=== PATIENT | female | born 1985 | race Caucasian/White ===

== ENCOUNTER → 2021-06-11 09:44 | Outpatient (CLI) | payer OTHER, SELFPAY ==
[2021-06-11 19:19] LABS: SARS-CoV-2 RNA PCR Negative
== END ==
PROVIDERS: Visit Provider Obstetrics & Gynecology Gynecologic Oncology
DX: Z01.812 Encounter for preprocedural laboratory examination (principal); Z20.822 Contact with and (suspected) exposure to COVID-19
CPT/HCPCS: C9803; U0003; U0005

== ENCOUNTER 2021-06-11 09:45 | Outpatient (CLI) | payer OTHER, SELFPAY ==
[2021-06-11 10:07] LABS: Hematocrit 37.6 % (37.0-47.0); Mean Corpuscular HGB Conc 31.9 g/dl (32-36); Mean Corpuscular Volume 84.5 fl (80-100); Mean Platelet Volume 9.4 fl (7.4-10.4); Platelet Count Result 283 k/mm3 (150-375); Red Blood Count 4.45 M/mm3 (4.2-5.4); Red Cell Distribution Width 15.6 % (11.5-14.5)
--- NOTE | 2021-06-11 10:15 | ECG_ITS ---
Measurements Intervals [place] Rate: 65 P: 37 WI: 148 QRS: 19 QRSD: 91 T: 41 QT: 430 QTc: 449 Interpretive Statements SINUS RHYTHM INCOMPLETE RIGHT BUNDLE BRANCH BLOCK BORDERLINE T WAVE ABNORMALITY- ANTERIOR LEADS BORDERLINE ECG Electronically Signed On 06-11-2021 16:48:12 PETROLEUM SAMPLER by Nic Britton D.O.
[2021-06-11 10:19] LABS: Anion Gap 8 mmol/L (8-16); Blood Urea Nitrogen 16 mg/dL (7-17); Calcium 9.3 mg/dL (8.4-10.2); Carbon Dioxide 27 mmol/L (22-30); Chloride 104 mmol/L (98-107); Estimated Glomerular Filt Rate > 60; Glucose 98 mg/dL (65-110); Potassium 4.2 mmol/L (3.4-5.0); Sodium 139 mmol/L (137-145)
== END 2021-06-11 09:46 | disposition home or self-care (01) ==
PROVIDERS: Referring Provider Anesthesiology; Visit Provider Obstetrics & Gynecology Gynecologic Oncology
DX: Z30.2 Encounter for sterilization (principal); E88.81 Metabolic syndrome and other insulin resistance; I10 Essential (primary) hypertension
CPT/HCPCS: 36415; 80048; 85027; 86850; 86900; 86901; 93005

== ENCOUNTER 2021-06-15 01:23 | Day surgery (SDC) | payer OTHER, SELFPAY ==
[2021-06-10 09:32] VITALS: BMI 27.6
--- NOTE | 2021-06-10 09:47 | PC.NURSE ---
Report to the Outpatient Waiting Room, entrance under the green pavilion located off [facility], at time 11:30 on date 06/15/21. OR Time: 1:30. - You and your visitor will be asked a series of questions to screen for COVID 19 for your protection. - A mask is required within the hospital. - Only one visitor is allowed at this time. Patient visitors will be guided where to wait when not with patient. Preoperative COVID Testing Requirements: No COVID Test needed if: (proof is required; if not received patient will have Rapid Test prior to entry) - Patient has received COVID Vaccine at least 14 days prior to procedure date or - Patient has positive COVID test result within last 90 days of surgery date. COVID Test needed if above criteria is not met If not COVID vaccinated a COVID test must be conducted within 72 hours of surgery and patient is asked to isolate self from time of testing until procedure. You will go to the [facility] for your COVID testing. The [facility] site is located at the corner of [address] [facility]. COVID TEST 06/11 AT 9:25 You will only be called if COVID results are positive and your surgeon may reschedule your elective surgery date. Patients may have clear liquids (water, carbonated beverages, clear teas, apple juice) until 3 hours prior to surgery (10:30) with a maximum of 20 ounces. - No food from midnight until time of surgery - Infants may have breast milk until 4 hours before surgery, formula 6 hours prior to surgery. - Children will be allowed to drink immediately following surgery. If applicable, please bring a bottle or sippy cup to assist with drinking. Juice, water, soda, and popsicles are readily available. For infants on formula, please bring formula the day of surgery. Pacifiers are allowed. Take the following medications with a SIP of water the morning of surgery: WELLBUTRIN, LABETALOL, LAMICTAL, ZOLOFT Medications to discontinue per physician: VITAMINS/SUPPLEMENTS Date to take last dose: 06/11/21 Please no make-up, nail vietnamese, hairspray, perfume, deodorant, or body powder the day of surgery. No jewelry (including any body piercings) or valuables the day of surgery, leave them at home. Please take a shower or bath the night before, or the morning of, surgery with an antibacterial soap. Wear comfortable, loose fitting clothing. Children are encouraged to wear pajamas. - Jewelry must be removed prior to entering the operating room. Rings and piercings that are not removed may be cut off. - The hospital will not accept responsibility for valuables. - Please leave all valuables, including medications, at home the day of surgery. If you are going home after surgery, a licensed full service vending driver must drive you home. - NO public transportation without another adult. - We recommend that an adult stay with you for 24 hours following discharge. - We also recommend that you do not drive, make important decision, drink alcoholic beverages, or take any drugs that were not prescribed by your health care provider for at least 24 hours after your discharge time. For Pediatric surgeries, we recommend two adults accompany the child home (only one inside the building at this time). Follow any additional instructions given to you from your surgeon. Telephone instructions given to RUDY LAYTON and asked if any additional questions and then verbalized understanding. Patient advised to call surgeon office or pre surgery nurse liaison [phone] if any additional questions.
[2021-06-15] VITALS (10 sets, daily range): BP systolic 110–142; BP diastolic 70–92; PULSE 68–81; RESP 12–17; TEMP 36.1–36.5; O2SAT 95–100
--- NOTE | 2021-06-15 11:23 | PM.IMHP ---
H&P: HPI History of Present Illness Date/Time: 06/15/21 11:23 Chief Complaint: I'm here for my surgery Narrative: Nura presents for permanent sterilization Review of Systems Review of Systems: All systems reviewed & are unremarkable except as noted in HPI and below [facility] Past Medical History Medical History (Updated 06/15/21 @ 11:25 by Emma Marshall DO) Diabetes type 2, controlled Hypertension Social History Social History Smoking status: Never smoker Alcohol intake: never Substance use: never Substance use type: does not use Living arrangements: with family Spiritual care concerns: No Meds Home Medications and Allergies Home Medications Medication Instructions Recorded Confirmed Type Lacto.acidophilus-Bif.animalis 1 cap PO DAILY 06/10/21 06/10/21 History [Probiotic] bupropion HCl [Wellbutrin SR] 150 mg PO BID 06/10/21 06/10/21 History labetalol 200 mg PO BID 06/10/21 06/10/21 History lamotrigine [Lamictal] 100 mg PO DAILY 06/10/21 06/10/21 History metformin 1,000 mg PO HS 06/10/21 06/10/21 History multivitamin 1 tablet PO DAILY 06/10/21 06/10/21 History sertraline [Zoloft] 50 mg PO DAILY 06/10/21 06/10/21 History Allergies Allergy/AdvReac Type Severity Reaction Status Date / Time No Known Allergies Allergy Verified 06/10/21 09:29 Exam Const: General: comfortable and no acute distress Eyes: General: appearance normal, both eyes and all related structures Resp: Auscultation: clear to auscultation bilaterally Cardio: Rate: regular rate Rhythm: regular rhythm GI: GI Palp: Yes Soft to palpation Percussion: Yes normal to percussion Auscultation: normal bowel sounds Skin: General skin exam: normal color and no rashes or lesions noted Neuro: Cognition (Neuro): normal cognition Speech: normal speech Extrem: General: normal to inspection Psych: Mental Status: mental status grossly normal Affect: normal affect Assessment and Plan Assessment and plan (1) Sterilization: Code(s): Z30.2 - Encounter for sterilization Status: Acute (2) Heavy menstrual bleeding: Code(s): N92.0 - Excessive and frequent menstruation with regular cycle Status: Acute Additional Plan Diagnostic laparoscopy, bilateral salpingectomy, hysteroscopy, D&C, Novasure ablation
--- NOTE | 2021-06-15 11:27 | WPDHPUPDATE1 ---
History and Physical Update Update Date/Time: 06/15/21 11:27 History and Physical has been reviewed, including an updated exam of the patient. There are NO changes in the patient's condition. Risks, benefits, and alternatives have been discussed and questions answered. Patient agrees to proceed with procedure.
--- NOTE | 2021-06-15 12:03 | WPDANESEPPF ---
Anes - Initial Pre Proc Eval Procedure: Operation Date: 06/15/21 13:30 Proposed Procedures p Diagnostic Laparoscopy, Bilateral Salpingectomy - Emma Marshall DO s Hysteroscopy, Dilation and Curettage, Novasure Endometrial Ablation - Emma Marshall DO Date/Time: 06/15/21 12:03 Surgeon: Emma Marshall DO Pre Op Diagnosis: desires sterilization Patient Data Age: 36 Gender: F Height: 1.8 m Weight: 89.91 kg Allergies Allergy/AdvReac Type Severity Reaction Status Date / Time No Known Allergies Allergy Verified 06/15/21 11:59 Home Medications Medication Instructions Recorded Confirmed Type Lacto.acidophilus-Bif.animalis 1 cap PO DAILY 06/10/21 06/15/21 History [Probiotic] bupropion HCl [Wellbutrin SR] 150 mg PO BID 06/10/21 06/15/21 History labetalol 200 mg PO BID 06/10/21 06/15/21 History lamotrigine [Lamictal] 100 mg PO DAILY 06/10/21 06/15/21 History metformin 1,000 mg PO HS 06/10/21 06/15/21 History multivitamin 1 tablet PO DAILY 06/10/21 06/15/21 History sertraline [Zoloft] 50 mg PO DAILY 06/10/21 06/15/21 History Patient hx anesthesia problems: none Family hx anesthesia problems: none Results Review: All pre-operative results and documents have been reviewed as part of the pre-operative evaluation. [facility] Past Medical History Medical History (Updated 06/15/21 @ 11:25 by Emma Marshall DO) Diabetes type 2, controlled Hypertension Social History Social History Smoking status: Never smoker Alcohol intake: never Substance use: never Substance use type: does not use Living arrangements: with family Spiritual care concerns: No Anes - Eval Final PreProcedure Day of Procedure 06/15/21 12:03 Patient weight: overweight Heart: regular rate and rhythm Lungs: clear to auscultation and normal air movement Airway: Mallampati scale class II Neurological: alert and oriented Last oral intake: >/= 8 hours ASA classification: III Emergent: no Anesthetic plan: proceed Anesthesia type and monitoring: general ETT and standard monitoring Results Review: All pre-operative results and documents have been reviewed as part of the pre-operative evaluation. Informed Consent: The patient's anesthetic plan and its attendant risks and benefits were discussed with the patient/family/POA. Questions were solicited and answers provided to the satisfaction of the patient/family/POA.
[2021-06-15] MEDS: SCOPOLAMINE 1.5 MG PATCH TRANSDERM (12:20)
[2021-06-15] MEDS: ACETAMINOPHEN 500 MG TABLET 1000 MG PO (12:20)
[2021-06-15] MEDS: GABAPENTIN 300 MG CAPSULE PO (12:20)
[2021-06-15] MEDS: LACTATED RINGERS 1,000 ML 30 ML IV CONT ×2 (12:25→15:04)
[2021-06-15 12:27] LABS: Glucose Point of Care 81 mg/dl (65-105)
[2021-06-15] MEDS: BUPIVACAINE/EPINEPHRINE 0.25% 10 ML VIAL INFILTRATE (14:26)
--- NOTE | 2021-06-15 14:59 | W.PM.PROC2 ---
Procedure Note - Detailed Date of Procedure 06/15/21 Pre-op Diagnosis desires sterilization, Heavy menstrual bleeding Post-op Diagnosis same Procedure Performed Diagnostic laparoscopy, bilateral salpingectomy, hysteroscopy, D&C, Novasure ablation Surgeon Emma Marshall DO Ict Help Desk Technician Gerard Anesthesia general Indications Heavy menstrual bleeding, desires permanent sterilization Findings Normal appearing vulva and vaginal canal. Small cervix, high in the vaginal canal. Internally, the liver and stomach appeared healthy. The bowel was grossly normal. The pelvis was clear of adhesions or lesions except for scarring at the bladder flap from her previous cesareans. Should she need a hysterectomy, I'd recommend she have it done robotically due to the risk of bladder injury. Description of Procedure The patient was taken to the operating room where she was placed under general anesthesia. No preop antibiotics were indicated. She was prepped and draped in the normal sterile fashion in the dorsal lithotomy position. A timeout was performed. A reeder catheter was placed. A speculum was placed and the cervix visualized. It was grasped with a single tooth tenaculum and a uterine manipulator was introduced. Gloves were changed and attention was then turned to the abdomen. The skin under the umbilicus was grasped with penetrating towel clamps and the skin injected with local. A small incision was made and A veress needle was introduced. A saline water drop test was performed to confirm intraperitoneal placement. The abdomen was insufflated to a filling pressure of 15 mm Hg. Once emanuel abdomen was insufflated, the Veress was replaced with a 5 mm Optiview trocar. Survey of the abdomen revealed no evidence of bowel or vascular injury. The patient was placed in steep Trendelenburg position. Additional trocar sites were identified, injected and incised in the right and left lower quadrants. Additional 5 mm trocars were introduced under direct visualization. The survey of the pelvis was unremarkable except for scarring at the bladder flap. The uterus was elevated and the right tube was cauterized and transected off using the Ligasure, it was then haded off through the doctor assistant port. The left tube was removed in the same fashion. The pedicles were inspected and found to be hemostatic. The CO2 gas was allowed to escape and the trocars were removed. We then proceeded with the hysteroscopy portion. The uterine manipulator was removed and the cervix regrasped with a single tooth tenaculum. The hysteroscope was introduced and revealed no lesions, both tubal ostia were seen. The uterine and cervical lengths were measured. The hysteroscope was removed and a curettage of the cavity was performed with removal of a moderate amount of tissue. The Novasure was introduced, cavity length was 6cm, width 3.4 cm, 112 abdalla for 75 seconds. Additional packing with wet guaze and an additional Allis clamp was used to keep the cervix closed because the initial cavity assessment failed due to gas visibly leaking from the cervix. Once this additional packing was performed the ablation was successful. All the instruments and speculum were removed. Monsels was used to make the tenaculum sites hemostatic. The abdominal incisions were closed with 4-0 monocryl in an interrupted subcuticular fashion. The reeder catheter was removed. All instrument and sponge counts were correct at the conclusion of the procedure. The patient was taken to the recovery room in stable condition. Estimated Blood Loss 16 IV Fluids 1,000 Urine Output 300 Drains No Packing No Pathology yes Complications No immediate complications Condition stable Disposition PACU
[2021-06-15] MEDS: ONDANSETRON INJ 4 MG/2 ML VIAL IV PUSH (15:15)
[2021-06-15] MEDS: fentaNYL CITRATE INJ (*CRX) 100 MCG/2 ML VIAL 25 MCG IV PUSH ×4 (15:23→15:50)
[2021-06-15 15:28] LABS: Glucose Point of Care 94 mg/dl (65-105)
[2021-06-15] MEDS: diphenhydrAMINE HCl INJ 50 MG/ML VIAL 12.5 MG IV PUSH (16:25)
== END 2021-06-15 17:09 | disposition home or self-care (01) ==
PROVIDERS: Visit Provider Obstetrics & Gynecology Gynecologic Oncology
PROC: (CPT 49320; principal; 2021-06-15 13:30)
PROC: 0U5B8ZZ Destruction of Endometrium, Via Natural or Artificial Opening Endoscopic (ICD-10-PCS; CPT 58563; 2021-06-15 13:30)
DX: Z30.2 Encounter for sterilization (principal); N92.0 Excessive and frequent menstruation with regular cycle; I10 Essential (primary) hypertension; E11.9 Type 2 diabetes mellitus without complications; Z79.84 Long term (current) use of oral hypoglycemic drugs
CPT/HCPCS: 58563; 58661; 82948; 88302; 88305; A9270; J1100; J1200; J2250; J2405; J2704; J3010; J7030; J7120